=== PATIENT | male | born 1935 | race Caucasian/White ===

== ENCOUNTER 2017-08-14 09:40 | Emergency (ER) | payer MEDICARE, OTHER ==
[~2017-08-14] VITALS: Ht 172.7 cm; Wt 79.6 kg
[~2017-08-14 09:40] MED LIST: ACETAMINOPHEN-1 EACH PO; COZAAR100 MG PO; GABAPENTIN100 MG PO; HYDROCHLOROTHIA25 MG PO; OXYCODON-ACETA1 EAC2 PO; PEPCID20 MG PO; TENORMIN50 MG PO; TUMS ULTRA400 MG PO
== END 2017-08-14 11:20 | disposition home or self-care (01) ==
LOC: ED 09:40
PROC: 0HQEXZZ Repair Left Lower Arm Skin, External Approach (ICD-10-PCS; principal; 2017-08-14)
DX: S51.812A Laceration without foreign body of left forearm, initial encounter (principal); I10 Essential (primary) hypertension; Z87.891 Personal history of nicotine dependence; W22.8XXA Striking against or struck by other objects, initial encounter
CPT/HCPCS: 12032; 99282